=== PATIENT | male | born 1980 | race Hispanic/Latino ===

== ENCOUNTER 2017-09-18 14:44 | Emergency (ER) | payer MEDICAID ==
[~2017-09-18] VITALS: Ht 165.1 cm; Wt 61.6 kg
[2017-09-18] MEDS ORDERED: METFORMIN HCL500 MG PO (16:26)
[2017-09-18] MEDS ORDERED: LANTUS 3 M100 UNITS1 SC (16:26)
[2017-09-18 16:28] LABS: CHLORIDE 103 MEQ/L (99-109); CREATININE 0.8 MG/DL (0.6-1.3); GFR ESTIMATE (CALCULATED) > 59 mL/min/ (58.99-99999); POTASSIUM 4.1 MEQ/L (3.7-5.4); SODIUM 132 MEQ/L (136-147); UREA NITROGEN (BUN) 9 mg/dL (9-23)
[2017-09-18 16:33] LABS: GLUCOSE 466 mg/dL (70-99)
[2017-09-18] MEDS ORDERED: ATARAX,VISTARIL25 MG PO (16:33)
[2017-09-18] MEDS ORDERED: BASAGLAR K100 UNIT/1 SC (18:05)
[2017-09-18] MEDS ORDERED: NOVOLIN,HU100 UNITS1 SC (18:16)
[2017-09-18 18:30] VITALS: BP 114/69
== END 2017-09-18 18:40 | disposition home or self-care (01) ==
LOC: EME 14:44
PROVIDERS: Physician Assistant
DX: E11.65 Type 2 diabetes mellitus with hyperglycemia (principal); Z79.4 Long term (current) use of insulin; Z76.0 Encounter for issue of repeat prescription; S80.212A Abrasion, left knee, initial encounter; Y04.0XXA Assault by unarmed brawl or fight, initial encounter; F20.9 Schizophrenia, unspecified; E78.5 Hyperlipidemia, unspecified; F17.200 Nicotine dependence, unspecified, uncomplicated
CPT/HCPCS: 73564; 80048; 82803; 82948; 99281; 99285; J7030; Q0177